=== PATIENT | male | born 1985 | race Caucasian/White ===

== ENCOUNTER 2019-06-10 11:45 | Emergency (ER) | payer OTHER ==
[~2019-06-10] VITALS: Ht 167.6 cm; Wt 63.5 kg
[2019-06-10] MEDS ORDERED: IV NORMAL SALINE 1000 ML BAG IV ONE (12:15)
[2019-06-10 12:34] LABS: BASOPHILS % (AUTO) 0.2 % (0.0-2.0); EOSINOPHILS % (AUTO) 0.1 % (0.0-7.0); HEMATOCRIT 40.6 % (36.7-47.1); HEMOGLOBIN 13.5 g/dL (12.5-16.3); LYMPHOCYTES # (AUTO) 0.9 K/uL (20.0-40.0); LYMPHOCYTES % (AUTO) 4.1 % (20.5-51.5); MEAN CORPUSCULAR HEMOGLOBIN 29.8 uug (23.8-33.4); MEAN CORPUSCULAR HGB CONC 33 g/dL (32.5-36.3); MEAN CORPUSCULAR VOLUME 89.6 fL (73.0-96.2); MONOCYTES # (AUTO) 1.1 K/uL (2.0-10.0); MONOCYTES % (AUTO) 5.3 % (0.0-11.0); NEUTROPHILS # (AUTO) 19.1 K/uL (1.8-8.9); NEUTROPHILS % (AUTO) 90.3 % (38.5-71.5); PLATELET COUNT (AUTO) 404 K/uL (152-348); RED BLOOD CELL COUNT(AUTO) 4.53 MIL/uL (4.06-5.63); WHITE BLOOD COUNT (AUTO) 21.1 K/uL (3.6-10.2)
--- NOTE | 2019-06-10 12:41 | NUR ---
PT IS IN ROOM #2B. DR MCMULLEN EVALUATED THE PT.
[2019-06-10 12:46] LABS: CARBON DIOXIDE 28 mmol/L (21-32); CHLORIDE 103 mmol/L (98-107); CREATININE 1.6 mg/dL (0.6-1.3); GLUCOSE 80 mg/dL (74-106); POTASSIUM 3.8 mmol/L (3.5-5.1); UREA NITROGEN, BLOOD 24 mg/dL (7-18)
[2019-06-10 12:52] LABS: ALANINE AMINOTRANSFERASE 26 U/L (16-63); ALKALINE PHOSPHATASE 100 U/L (50-136); ASPARTATE AMINOTRANSFERASE 38 U/L (15-37); BILIRUBIN,DIRECT 0.1 mg/dL (0.0-0.2); BILIRUBIN,TOTAL 0.5 mg/dL (0.2-1.0)
[2019-06-10 12:53] LABS: ACETAMINOPHEN < 2.0 ug/mL (10-30)
[2019-06-10 13:09] LABS: ETHANOL < 3 MG/DL (0-0)
--- NOTE | 2019-06-10 15:57 | NUR ---
pt was d/c'd from [facility]. d/c instructions given to the pt.
[2019-06-10 16:04] VITALS: BP 143/66
== END 2019-06-10 16:05 | disposition home or self-care (01) ==
LOC: ER 11:45
DX: F15.10 Other stimulant abuse, uncomplicated (principal); Z59.0 Homelessness; D72.829 Elevated white blood cell count, unspecified; N28.9 Disorder of kidney and ureter, unspecified; Z82.49 Family history of ischemic heart disease and other diseases of the circulatory system; R41.82 Altered mental status, unspecified
CPT/HCPCS: 36415; 80048; 80076; 80307; 80329; 85025; 93005; 96360; 99284; G0480; A4663; J7030